=== PATIENT | male | born 1955 | race Caucasian/White ===

== ENCOUNTER 2016-12-23 18:10 | Observation (INO) | payer BC ==
--- NOTE | 2016-12-23 19:54 | RAD ---
INDICATION: Pain and swelling. COMPARISON: None TECHNIQUE: Duplex interrogation of the Lowerextremity was performed. FINDINGS: Deep veins: The common femoral, great saphenous, profunda femoris, proximal, mid, and distal deep femoral, popliteal, posterior tibial, and peroneal veins were interrogated. There is thrombus extending from the proximal deep femoral and to the tibial vessels Superficial veins: There are no findings of superficial thrombophlebitis. Popliteal fossa:There is no evidence of a popliteal cyst. Soft tissues:There is calf edema. IMPRESSION: EXTENSIVE DEEP VENOUS THROMBOSIS.
[2016-12-23 20:23] LABS: Hematocrit 41 % (42-52); Hemoglobin 13.8 g/dl (14.0-18.0); Mean Corpuscular HGB Conc 34 g/dl (31-36); Mean Corpuscular Hemoglobin 29 pg (27-31); Mean Corpuscular Volume 86 fL (80-94); Mean Platelet Volume 7 um3 (7.4-10.4); Red Blood Count 4.79 10^6/ul (4.0-5.4); Red Cell Distribution Width 13 % (10.5-15); White Blood Count 9.8 10^3/ul (3.5-10.8)
[2016-12-23 20:38] LABS: BUN/Creatinine Ratio 12.1 (8-20); Calcium 9.7 mg/dL (8.6-10.3); EGFR African American 70.9 (>60); EGFR Non-African American 55.1 (>60); Potassium 4.1 mmol/L (3.5-5.0)
[2016-12-23] MEDS ORDERED: Rivaroxaban TAB(*) 20 MG TAB PO SCH (21:00)
[2016-12-23] MEDS ORDERED: Rivaroxaban TAB(*) 20 MG TAB PO ONE (22:00)
[2016-12-23] MEDS ORDERED: Iodixanol* (CONTRAST) 320 MG/ML 100 ML SDV IV ONE (22:07)
[2016-12-24] MEDS ORDERED: traMADol TAB* 50 MG PO PRN (01:24)
[2016-12-24] MEDS ORDERED: Acetaminophen TAB* 325 MG PO PRN (01:24)
[2016-12-24] MEDS ORDERED: CMCS: Melatonin (NF) 3 MG TAB PO PRN (01:24)
[2016-12-24] MEDS ORDERED: Ondansetron INJ* 2 MG/ML VIAL IV PRN (01:24)
[2016-12-24] MEDS ORDERED: oxyCODONE TAB* 5 MG TAB PO PRN (01:24)
[2016-12-24] MEDS ORDERED: NS 0.9% 1000 ML* 1,000 ML IV SCH (01:30)
[2016-12-24] MEDS ORDERED: Omeprazole CAP* 20 MG PO SCH (06:00)
[2016-12-24 06:04] LABS: Hematocrit 39 % (42-52); Hemoglobin 13.3 g/dl (14.0-18.0)
--- NOTE | 2016-12-24 06:47 | HP ---
H&P (Free Text) History and Physical: PCP: KARLIE Chinchilla MD Date/Time: 12/24/2016 0100 CC: RLE swelling and tightness HPI: Mr Iyer is a 61YO male HX NH lymphoma & prostate CA presenting with onset yesterday of R calf discomfort progressing up the leg to the thigh to include swelling. He denies injury, change in activity, or recent prolonged trip. He denies chest pain, SOB, palpitations, N/V, light-headedness, or other issues. Evaluation revealed an extensive RLE DVT. CTA chest revealed B pulmonary emboli. 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; full codes status FamHx: Mother: passed of complications of asthma; Father: alive in his 80's w/ HX DVT; siblings: prostate CA ROS: as above, otherwise reviewed and all were negative vitals: Vital Signs Temp 37.1 C 12/24/16 04:00 Pulse 60 12/24/16 06:00 Resp 17 12/24/16 06:00 BP 130/70 12/24/16 06:00 Pulse Ox 96 12/24/16 06:00 Intake & Output 12/23/16 12/23/16 12/24/16 11:59 23:59 11:59 Intake Total 272 Balance 272 Weight 79.379 kg 80.1 kg Intake: IVPB 222 NS (0.9%) 222 Oral 50 Other: Date of Last Bowel 12/23/2016 Movement Constitutional: NAD, normally developed, well-nourished white male HEENM: atraumatic; sclera/conjunctiva: non-icteric/clear; hearing: clinically intact; oropharynx: clear, mucosa moist Neck: soft tissue: non-tender; thyroid: normal Pulmonary: clear to auscultation bilaterally, good aeration, no accessory muscle use CV: RR/RR, normal S1S2, no carotid bruit, no jugular venous distention, 2+ B DP/ PT, trace to 1+ RLE edema Abdominal: soft, non-distended, non-tender, no rebound/guarding/rigidity, normoactive bowel sounds, no hepatosplenomegaly or masses, no costovertebral angle tenderness Musculoskeletal: general: grossly intact; gait: stable Integumental: normal appearance and texture of exposed skin Psychiatric orientation: AA&O to PPS affect: calm mood: pleasant eye contact: good content: reliable responses: timely insight: good Testing: Lab Results 12/23/16 12/23/16 12/23/16 Range/Units 20:14 20:14 20:14 WBC 9.8 (3.5-10.8) 10^3/ul RBC 4.79 (4.0-5.4) 10^6/ul Hgb 13.8 L (14.0-18.0) g/dl Hct 41 L (42-52) % MCV 86 (80-94) fL MCH 29 (27-31) pg MCHC 34 (31-36) g/dl RDW 13 (10.5-15) % Plt Count 190 (150-450) 10^3/ul MPV 7 L (7.4-10.4) um3 INR (Anticoag Therapy) 0.96 (0.89-1.11) APTT 29.8 (26.0-36.3) seconds Sodium 138 (133-145) mmol/L Potassium 4.1 (3.5-5.0) mmol/L Chloride 102 (101-111) mmol/L Carbon Dioxide 29 (22-32) mmol/L Anion Gap 7 (2-11) mmol/L BUN 16 (6-24) mg/dL Creatinine 1.32 H (0.67-1.17) mg/dL Est GFR ( Amer) 70.9 (>60) Est GFR (Non-Af Amer) 55.1 (>60) BUN/Creatinine Ratio 12.1 (8-20) Glucose 95 (70-100) mg/dL Calcium 9.7 (8.6-10.3) mg/dL 12/24/16 Range/Units 05:50 WBC (3.5-10.8) 10^3/ul RBC (4.0-5.4) 10^6/ul Hgb 13.3 L (14.0-18.0) g/dl Hct 39 L (42-52) % MCV (80-94) fL MCH (27-31) pg MCHC (31-36) g/dl RDW (10.5-15) % Plt Count (150-450) 10^3/ul MPV (7.4-10.4) um3 INR (Anticoag Therapy) (0.89-1.11) APTT (26.0-36.3) seconds Sodium (133-145) mmol/L Potassium (3.5-5.0) mmol/L Chloride (101-111) mmol/L Carbon Dioxide (22-32) mmol/L Anion Gap (2-11) mmol/L BUN (6-24) mg/dL Creatinine (0.67-1.17) mg/dL Est GFR ( Amer) (>60) Est GFR (Non-Af Amer) (>60) BUN/Creatinine Ratio (8-20) Glucose (70-100) mg/dL Calcium (8.6-10.3) mg/dL ECG, personally reviewed: NSR rate 72, no ischemia, mild J-point elevation V2/3 CXR, personally reviewed: IMPRESSION: EXTENSIVE DEEP VENOUS THROMBOSIS. CTA chest, personally reviewed: Pulmonary emboli left lower lobe segmental/ subsegmental arteries and arteries in the right middle and lower lobes. No aortic dissection or aneurysm. No pneumonia or pleural effusions. Coronary artery disease. 9mm nodule right middle lobe, stable since 02/25/11. Persisting 3.3cm calcified cystic focus in spleen unchanged. Impression: 61M HX NH lymphoma & prostate CA presents with extensive RLE DVT & B PE. DIAGNOSIS & PLAN Primary extensive RLE DVT & B PE : start rivaroxaban PO 15mg BID x21 days, then 20mg daily for 9-12 months : pain control : strict bedrest for 24hours to allow clot burden to stabilize and decrease risk of re-embolization : supportive care Secondary NH lymphoma & prostate CA : continue outpatient surveillance Admission Rational: inpatient for extensive RLE DVT & B PE at high risk of re- embolization requiring close monitoring; inappropriate for outpatient setting DVTp: rivaroxaban Code Status: full HCP:
--- NOTE | 2016-12-24 07:27 | RAD ---
INDICATION: The venous thrombosis. COMPARISON: Comparison is made with a prior CT of the chest from February 25, 2011. TECHNIQUE: A CT angiogram of the chest was performed with intravenous following intravenous injection of 77 ml of Visipaque 320 nonionic contrast. Contiguous axial sections were obtained from the lung apices through the lung bases. Images were reconstructed in the coronal and sagittal planes. FINDINGS: There is suboptimal opacification of the pulmonary arteries. There is a thrombus in the right interlobar, right middle lobe and right basilar segmental and subsegmental arteries. There are also filling defects in the left lower lobe basilar segmental arteries consistent with multiple bilateral pulmonary emboli. The heart is within normal limits in size. No pericardial effusion is present. There are calcifications within the coronary arteries. The thoracic aorta is normal in caliber and demonstrates homogeneous contrast opacification. No significant enlarged mediastinal or hilar lymph nodes are seen. There is a peripherally calcified cystic lesion present within the superior aspect of the spleen measuring 3.3 cm in size which is unchanged from the prior CT study from 2010. There is a 0.9 x 0.5 cm oblong nodule present in the right middle lobe which is unchanged from the prior study from 2010. There are mild dependent bilateral lower lobe infiltrates suggestive of atelectasis. No pleural effusion is seen. No significant focal osseous abnormality is seen. IMPRESSION: 1. MULTIPLE BILATERAL PULMONARY EMBOLI. 2. STABLE RIGHT MIDDLE LOBE PULMONARY NODULE. 3. STABLE CYSTIC LESION IN THE SPLEEN.
[2016-12-24] MEDS: Rivaroxaban TAB(*) 15 MG PO SCH ×2 (08:02→20:24)
[2016-12-24] MEDS ORDERED: Docusate CAP* 100 MG PO SCH (09:00)
--- NOTE | 2016-12-24 09:17 | DCNOTE ---
Subjective Date of Service: 12/24/16 Interval History: Mild pain R leg. No subj change in the swelling. No chest pain, cough, SOB. No new c/o. Objective Active Medications: Acetaminophen (Tylenol Tab*) 650 mg PO Q6H PRN PRN Reason: FEVER/PAIN Rivaroxaban (Xarelto(*)) 15 mg PO BID DIVINE Last Admin: 12/24/16 08:02 Dose: 15 mg Vital Signs 12/24/16 12/24/16 12/24/16 01:56 02:04 02:12 Temperature 100.0 F Pulse Rate 68 Respiratory 18 Rate Blood Pressure 169/83 160/68 (mmHg) O2 Sat by Pulse 98 95 Oximetry 12/24/16 12/24/16 12/24/16 02:15 02:19 02:27 Temperature 99.9 F Pulse Rate 74 Respiratory 17 18 Rate Blood Pressure 169/83 (mmHg) O2 Sat by Pulse 96 Oximetry 12/24/16 12/24/16 12/24/16 02:30 02:45 03:00 Temperature Pulse Rate 68 70 67 Respiratory 21 17 18 Rate Blood Pressure 148/82 145/84 149/79 (mmHg) O2 Sat by Pulse 97 96 97 Oximetry 12/24/16 12/24/16 12/24/16 03:15 03:30 03:45 Temperature Pulse Rate 65 68 62 Respiratory 20 18 12 Rate Blood Pressure 155/86 149/84 144/73 (mmHg) O2 Sat by Pulse 97 97 97 Oximetry 12/24/16 12/24/16 12/24/16 04:00 04:15 04:30 Temperature 98.8 F Pulse Rate 59 56 55 Respiratory 17 15 15 Rate Blood Pressure 131/70 134/72 127/67 (mmHg) O2 Sat by Pulse 96 95 95 Oximetry 12/24/16 12/24/16 12/24/16 04:45 05:00 05:15 Temperature Pulse Rate 56 55 55 Respiratory 15 14 14 Rate Blood Pressure 120/69 125/67 125/61 (mmHg) O2 Sat by Pulse 95 95 95 Oximetry 12/24/16 12/24/16 12/24/16 05:30 05:45 06:00 Temperature Pulse Rate 55 55 60 Respiratory 16 14 17 Rate Blood Pressure 121/65 113/61 130/70 (mmHg) O2 Sat by Pulse 95 95 96 Oximetry 12/24/16 12/24/1612/24/17 07:00 08:00 09:00 Temperature 98.7 F Pulse Rate 53 61 65 Respiratory 15 19 18 Rate Blood Pressure 119/63 127/72 (mmHg) O2 Sat by Pulse 95 97 97 Oximetry Oxygen Devices in Use Now: None Appearance: Alert, partly up in ICU bed. In good spirits. Looks comfortable. Eyes: No Scleral Icterus Neck: NL Appearance and Movements; NL JVP, No Thyroid Enlargement, Masses Respiratory: Symmetrical Chest Expansion and Respiratory Effort, Clear to Auscultation, Clear to Percussion Cardiovascular: NL Sounds; No Murmurs; No JVD, RRR, No Edema, - Extremities: No Edema, No Clubbing, Cyanosis, - - R calf larger than L Skin: No Rash or Ulcers, No Nodules or Sclerosis, - Neurological: Alert and Oriented x 3, NL Sensation Result Diagrams: 12/24/16 05:50 12/23/16 20:14 Additional Lab and Data: Lab Results 12/23/16 12/23/16 Range/Units 20:14 20:14 WBC 9.8 (3.5-10.8) 10^3/ul RBC 4.79 (4.0-5.4) 10^6/ul Hgb 13.8 L (14.0-18.0) g/dl Hct 41 L (42-52) % MCV 86 (80-94) fL MCH 29 (27-31) pg MCHC 34 (31-36) g/dl RDW 13 (10.5-15) % Plt Count 190 (150-450) 10^3/ul MPV 7 L (7.4-10.4) um3 INR (Anticoag Therapy) 0.96 (0.89-1.11) APTT 29.8 (26.0-36.3) seconds Microbiology and Other Data: Microbiology 12/24/16 01:55 Nasal Screen MRSA (PCR)([facility]) - Final Nasal Mrsa Negative Assess/Plan/Problems-Billing Assessment: - Patient Problems (1) Pulmonary embolism Current Visit: Yes Status: Acute Code(s): I26.99 - OTHER PULMONARY EMBOLISM WITHOUT ACUTE COR PULMONALE SNOMED Code(s): 26629323 Comment: with DVT R leg. Stable. Had first dose of rivaroxaban about 0200 ( ? 20 mg), second dose (15 mg) 8 aAM 12/24. Transfer to tele, plan d/c with rx for both 15 mg rivaroxaban and [address] Chinchilla. (2) History of prostate cancer Current Visit: Yes Status: Acute Code(s): Z85.46 - PERSONAL HISTORY OF MALIGNANT NEOPLASM OF PROSTATE SNOMED Code(s): 573250818 Comment: PSA 0.063 on 11/27/16. Status and Disposition: Tele.
--- NOTE | 2016-12-25 08:15 | ED ---
Viola Hyatt Thomas, scribed for Steven Alberto MD on 12/23/16 at 2037 . Lower Extremity - HPI Summary HPI Summary: The pt is a 61 y/o M presenting to the ED c/o RLE swelling and pain that began two days ago. The pt rates the pain 2/10. The pain is aggravated by elevation and is alleviated by nothing. 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 He denies CP, SOB, and F/C/S. PMHx: Non-Hodgkins lymphoma, chemotherapy, amyloidosis, BPH. PSHx: prostectomy 05/27/16. SHx: no smoking, no alcohol use, no illicit drug use. FHx: DVT. - History of Current Complaint Chief Complaint: EDExtremityLower Stated Complaint: RT LEG PAIN Time Seen by Provider: 12/23/16 19:25 Hx Obtained From: Patient, Family/Lithographic Proofer Apprentice - in room Onset/Duration: Days - 2 days Severity Currently: Mild Pain Intensity: 2 Pain Scale Used: 0-10 Numeric Timing: Constant Associated Signs And Symptoms: Positive: Swelling - to RLE. Negative: Fever, Other - NEG: SOB, F/C/S Aggravating Factor(s): Other - POS: elevation Alleviating Factor(s): Nothing - Allergies/Home Medications Allergies/Adverse Reactions: Allergies Allergy/AdvReac Type Severity Reaction Status Date / Time No Known Allergies Allergy Verified 05/23/16 07:22 PMH/Surg Hx/FS Hx/Imm Hx Previously Healthy: No Endocrine/Hematology History: Denies: Hx Anticoagulant Therapy, Hx Diabetes, Hx Thyroid Disease Cardiovascular History: Denies: Hx Hypertension - borderline, no meds Respiratory History: Denies: Hx Asthma, Hx Chronic Obstructive Pulmonary Disease (COPD) GI History: Denies: Hx Ulcer - Cancer History Cancer Type, Location and Year: Non-hodgkins Lymphoma 2001. PROSTATE CA - Surgical History Surgery Procedure, Year, and Place: cholecystectomy 2001 Infectious Disease History: No Infectious Disease History: Denies: Hx Clostridium Difficile, Hx Hepatitis, Hx Human Immunodeficiency Virus (HIV), Hx of Known/Suspected MRSA, Hx Shingles, Hx Tuberculosis, Hx Known/ Suspected VRE, Hx Known/Suspected VRSA, History Other Infectious Disease, Traveled Outside the [place] in Last 30 Days - Family History Known Family History: Positive: Other - POS: DVT. - Social History Alcohol Use: None Substance Use Type: Reports: None Smoking Status (MU): Never Smoked Tobacco Have You Smoked in the Last Year: No Review of Systems Negative: Fever, Chills, Skin Diaphoresis Negative: Erythema - eyes Negative: Sore Throat Negative: Chest Pain Negative: Shortness Of Breath, Cough Negative: Abdominal Pain, Vomiting, Nausea Negative: discharge, hematuria Positive: Edema - RLE, Other - POS: RLE pain. Negative: Myalgia Negative: Rash Neurological: Other - NEG: dizziness All Other Systems Reviewed And Are Negative: Yes Physical Exam - Summary Physical Exam Summary: Constitutional: Well-developed, Well-nourished, Alert. (-) Distressed Skin: Warm, Dry HENT: Normocephalic; Atraumatic Eyes: Conjunctiva normal Neck: Musculoskeletal ROM normal neck. (-) JVD, (-) Stridor, (-) Tracheal deviation Cardio: Rhythm regular, rate normal, Heart sounds normal; Intact distal pulses; The pedal pulses are 2+ and symmetric. Radial pulses are 2+ and symmetric. (-) Murmur Pulmonary/Chest wall: Effort normal. (-) Respiratory distress, (-) Wheezes, (-) Rales Abd: Soft, (-) Tenderness, (-) Distension, (-) Guarding, (-) Rebound Musculoskeletal: He has trace pitting edema in his RLE. Lymph: (-) Cervical adenopathy Neuro: Alert, Oriented x3 Psych: Mood and affect Normal Triage Information Reviewed: Yes Vital Signs On Initial Exam: Initial Vitals Temp Pulse Resp BP Pulse Ox 100 F 91 17 139/81 99 12/23/16 18:18 12/23/16 18:18 12/23/16 18:18 12/23/16 18:18 12/23/16 18:18 Vital Signs Reviewed: Yes - [place] Coma Scale Coma Scale Total: 15 Diagnostics - Vital Signs Vital Signs Temp Pulse Resp BP Pulse Ox 12/23/16 18:57 100 F 91 17 139/81 98 12/23/16 18:18 100 F 91 17 139/81 99 - Laboratory Lab Results: Lab Results 12/23/16 12/23/16 Range/Units 20:14 20:14 WBC 9.8 (3.5-10.8) 10^3/ul RBC 4.79 (4.0-5.4) 10^6/ul Hgb 13.8 L (14.0-18.0) g/dl Hct 41 L (42-52) % MCV 86 (80-94) fL MCH 29 (27-31) pg MCHC 34 (31-36) g/dl RDW 13 (10.5-15) % Plt Count 190 (150-450) 10^3/ul MPV 7 L (7.4-10.4) um3 INR (Anticoag Therapy) 0.96 (0.89-1.11) APTT 29.8 (26.0-36.3) seconds Result Diagrams: 12/23/16 20:14 12/23/16 20:14 Lab Statement: Any lab studies that have been ordered have been reviewed, and results considered in the medical decision making process. - CT CTA Chest CT Interpretation: No Acute Changes - Pulmonary emboli left lower lobe segmental /subsegmental arteries and ateries in right middle and lower lobes. CT Interpretation Completed By: Radiologist - Pending--see [facility] - Additional Comments Diagnostic Additional Comments: US RLE. Interpreted by radiologist. Impression: extensive DVT. Lower Extremity Course/Dx - Course Assessment/Plan: The pt is a 61 y/o M presenting to the ED c/o RLE swelling and pain that began two days ago. The pt rates the pain 2/10. The pain is aggravated by elevation and is alleviated by nothing. 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 He denies CP, SOB, and F/C/S. PMHx: Non-Hodgkins lymphoma, chemotherapy, amyloidosis, BPH. PSHx: prostectomy 05/27/16. SHx: no smoking, no alcohol use, no illicit drug use. FHx: DVT. In the ED course the patient was given Xarelto. Bloodwork was obtained. He has trace pitting edema in his RLE. I consulted with Dr. Bass, hospitalist, who recommends a CTA Chest. US RLE reveals extensive DVT. CTA Chest shows bilateral pulmonary emboli. ED Physician has reviewed this report and agrees. I consulted with Dr. Bass, hospitalist, who [place] [facility] [place]. 35 minutes of critical care time. The patient is diagnosed with proximal DVT and bilateral pulmonary embolism. - Diagnoses Provider Diagnoses: DVT of proximal leg (deep vein thrombosis), Bilateral pulmonary embolism - Physician Notifications Discussed Care Of Patient With: Dez Bass Time Discussed With Above Provider: 21:00 Instructed by Provider To: Other - Dr. Bryant, hospitalist, recommends a CTA Chest. He [place] [facility] [place]. - Critical Care Time Critical Care Time: 30-74 min - 35 minutes Discharge - Discharge Plan Condition: Fair Disposition: ADMITTED TO [facility] Prescriptions: Rivaroxaban [Xarelto Starter Pack 15 & 20 mg] 1 tab PO SEE INSTRUCTIONS #1 packet The documentation as recorded by the Viola yao Thomas accurately reflects the service I personally performed and the decisions made by me, Steven Alberto MD.
--- NOTE | 2016-12-25 09:25 | PN ---
Progress Note - Progress Note Date of Service: 12/25/16 Note: Time spent on discharge 40 minutes.
[2016-12-25] MEDS: Rivaroxaban TAB(*) 15 MG PO SCH (09:44)
[2016-12-25 10:03] VITALS: BP 99/68
--- NOTE | 2016-12-26 00:10 | DS ---
CC: Dr. Chinchilla * DISCHARGE SUMMARY: DATE OF ADMISSION: DATE OF DISCHARGE: 12/25/16 HISTORY: This 61-year-old man presented with right calf swelling and discomfort. He had been on a trip this past Thursday, he had two 3-hour bus trips. The following Thursday, he had two 2-hour car trips. A day or two after that, he developed swelling and pain in the right calf. He had no chest pain, shortness of breath or cough. CTA did reveal pulmonary emboli. He was started on rivaroxaban. He had some at 2 a.m. on 12/24/16 and then again at 8 a.m. and then twice a day after that. He felt fine in the hospital. On the day of discharge, he noted his right calf swelling and tenderness have both diminished significantly. He walks at least 10 times around the block without any shortness of breath or significant discomfort. I note he is quite an active man at home. I advised the patient that if he had future long car trips or plane trips, he should try to exercise his legs every hour by stopping and taking a 10-minute walk or in a plane walking in the aisle or exercising his legs in place. This is his first episode of thromboembolic disease. There may be a family history, but I do not think this would really change my recommendations. I think 3 to 6 months course of anticoagulants would be my recommendation. FINAL DIAGNOSES: 1. Thromboembolic disease with right leg deep venous thrombosis and pulmonary emboli. 2. Status post prostatectomy for prostate cancer in May 2016. 3. Non-Hodgkin's lymphoma, status post chemotherapy. 4. Hyperlipidemia. DISCHARGE MEDICATIONS: 1. Acetaminophen 650 mg every 6 hours p.r.n. 2. Rivaroxaban 15 mg b.i.d. to complete 21 days then 20 mg daily. 3. Mometasone nasal spray both nares daily. 4. Tadalafil 5 mg p.r.n. The patient was instructed not to take indomethacin. [id number]/[facility] #: [id number] [facility]
== END 2016-12-25 10:07 | disposition home or self-care (01) ==
LOC: ED 18:10 → ICU 12-24 01:00 → INTOOBSV 12-24 01:00 → MEDTELE 12-24 09:32
PROVIDERS: ADMIT Hospitalist; ATTEND Internal Medicine
DX: I82.411 Acute embolism and thrombosis of right femoral vein (principal); I26.99 Other pulmonary embolism without acute cor pulmonale; E78.5 Hyperlipidemia, unspecified; R94.31 Abnormal electrocardiogram [ECG] [EKG]; Z85.46 Personal history of malignant neoplasm of prostate; Z85.72 Personal history of non-Hodgkin lymphomas
CPT/HCPCS: 36415; 71275; 80048; 85014; 85018; 85027; 85610; 85730; 87641; 93005; 99291; A9270-GY; G0378

== ENCOUNTER 2019-05-31 07:39 | Emergency (ER) | payer BC ==
[2019-05-31 07:54] VITALS: BP 139/82
--- NOTE | 2019-05-31 08:13 | UC ---
Skin Complaint HPI - HPI Summary HPI Summary: PATIENT PRESENTS WITH SEVERAL WEEKS OF A RASH THAT STARTED ON HIS LOWER BACK THEN MOVED TO HIS LEGS AND NOW IS DIFFUSELY ALL OVER HIS TRUNK AND UPPER AND LOWER EXTREMITIES. IT IS ITCHY BUT NOT PAINFUL. PATIENT STARTED FENOFIBRATE FOR CHOLESTEROL ABOUT 4 MONTHS AGO. HAS BEEN ON LUPRON FOR ALMOST A YEAR. NO OTHER NEW MEDICATIONS. NO RESPIRATORY DISTRESS. NO TONGUE/LIP SWELLING. NO FEVER. NO OTHER NEW EXPOSURES OF WHICH HE IS AWARE. - History of Current Complaint Chief Complaint: UCSkin Time Seen by Provider: 05/31/19 07:58 Stated Complaint: RASH Hx Obtained From: Patient Onset/Duration: Gradual Onset, Lasting Days, Still Present Timing: Constant Onset Severity: Moderate Current Severity: Moderate Pain Intensity: 0 Pain Scale Used: 0-10 Numeric Location: Diffuse Character: Pruritus Aggravating Factor(s): Nothing Alleviating Factor(s): Antihistamines, OTC Creams/Salves - HYDROCORTISONE Associated Signs & Symptoms: Positive: Rash. Negative: Nausea, Diaphoresis, Difficulty Breathing, Fever, Cough, Wheezing, Chest Pain, Hoarseness, Throat Tightening - Allergy/Home Medications Allergies/Adverse Reactions: Allergies Allergy/AdvReac Type Severity Reaction Status Date / Time No Known Allergies Allergy Verified 05/23/16 07:22 Home Medications: Home Medications Allopurinol TAB* [Zyloprim 100 MG TAB*] 100 mg PO DAILY MDD 1 05/31/19 [History Confirmed 05/31/19] Ramipril CAP* [Altace CAP*] 2.5 mg PO DAILY MDD 1 05/31/19 [History Confirmed ] PMH/Surg Hx/FS Hx/Imm Hx - Additional Past Medical History Additional PMH: DVT Endocrine History: Dyslipidemia Cardiovascular History: Hypertension Cancer History: Prostate Cancer Other Cancer History: NON [facility]GKINS Other History Of: Negative For: Anticoagulant Therapy - Surgical History Surgical History: Yes Surgery Procedure, Year, and Place: cholecystectomy 2001. PROSTATECTOMY - Family History Known Family History: Positive: Other - POS: DVT. - Social History Alcohol Use: None Substance Use Type: None Smoking Status (MU): Never Smoked Tobacco Have You Smoked in the Last Year: No - Immunization History Most Recent Influenza Vaccination: 2014 Most Recent Pneumonia Vaccination: 2013 Review of Systems All Other Systems Reviewed And Are Negative: Yes Constitutional: Positive: Negative Skin: Positive: Rash Respiratory: Positive: Negative Cardiovascular: Positive: Negative Gastrointestinal: Positive: Negative Physical Exam Triage Information Reviewed: Yes Appearance: Well-Appearing, No Pain Distress, Well-Nourished Vital Signs: Initial Vital Signs Temp 97.4 F 05/31/19 07:47 Pulse 86 05/31/19 07:47 Resp 16 05/31/19 07:47 BP 139/82 05/31/19 07:47 Pulse Ox 99 05/31/19 07:47 Vital Signs Reviewed: Yes Eyes: Positive: Conjunctiva Clear ENT: Positive: Hearing grossly normal Neck: Positive: Supple Respiratory: Positive: No respiratory distress, No accessory muscle use Cardiovascular: Positive: Pulses Normal Abdomen Description: Positive: Soft Musculoskeletal: Positive: No Edema Neurological: Positive: Alert Psychological: Positive: Age Appropriate Behavior Skin: Positive: Rashes - DIFFUSE MACULOPAPULAR RASH OVER TRUNK AND EXTREMITIES. MILD EXCORIATION Course/Dx - Course Course Of Treatment: APPEARANCE OF RASH IS CONSISTENT WITH DERMATITIS DUE TO MEDICATION LIKELY THE FENOFIBRATE HE STARTED 4 MONTHS AGO. HE STOPPED THIS MEDICATION 2 DAYS AGO AND STATES HE FEELS A BIT BETTER ALREADY. HAS BEEN TAKING BENADRYL AND USING TOPICAL HYDROCORTISONE WITH SOME RELIEF. DISCUSSED PREDNISONE BUT PATIENT IS ALREADY IMPROVING HE AGREES THAT IT IS LIKELY UNNECESSARY. WILL HOLD OFF ON SYSTEMIC STEROIDS FOR NOW. PATIENT WILL CONTINUE ANTIHISTAMINES AND TOPICAL STEROIDS FOR SYMPTOM RELIEF. PRESCRIPTION FOR TRIAMCINOLONE SENT TO PHARMACY. PATIENT WILL FOLLOW-UP WITH HIS PCP TO DISCUSS ALTERNATIVE CHOLESTEROL TREATMENTS. TO THE ER WITHOUT FAIL IF SYMPTOMS WORSEN. - Diagnoses Provider Diagnosis: Dermatitis due to drug Discharge ED - Sign-Out/Discharge Documenting (check all that apply): Patient Departure All imaging exams completed and their final reports reviewed: No Studies - Discharge Plan Condition: Stable Disposition: HOME Prescriptions: Triamcinolone 0.1% CREAM(NF) [Kenalog Cream 0.1%(NF)] 1 applic TOPICAL TID PRN # 80 gm PRN Reason: Itching Patient Education Materials: General Allergic Reaction (ED), Dermatitis (ED) Referrals: Ellen Mera MD [Primary Care Provider] - 1 Week Additional Instructions: USE DAILY HYPOALLERGENIC MOISTURIZING LOTION AVOID HEAT AND HOT WATER TAKE OTC ANTIHISTAMINE DAILY (CLARITIN (LORATADINE), ZYRTEC (CETIRIZINE) IN THE MORNING, 25-50MG BENADRYL AT NIGHT) DO NOT SCRATCH KEEP COOL, CLEAN AND DRY USE TOPICAL STEROID SPARINGLY 2-3 TIMES DAILY ON ITCHY SPOTS. KEEP AWAY FROM MUCOUS MEMBRANES. GO TO THE ED WITHOUT FAIL IF YOU DEVELOP ANY RESPIRATORY INVOLVEMENT, TONGUE/ LIP SWELLING, FEVER, NAUSEA/VOMITING OR ANY OTHER CONCERNING SYMPTOMS. FOLLOW-UP WITHY YOUR PCP TO DISCUSS ALTERNATIVE TREATMENTS FOR YOUR CHOLESTEROL. STAY OFF THE FENOFIBRATE. - Billing Disposition and Condition Condition: STABLE Disposition: Home
== END 2019-05-31 08:27 | disposition home or self-care (01) ==
LOC: UCEAST 07:39
DX: L27.0 Generalized skin eruption due to drugs and medicaments taken internally (principal); T46.6X5A Adverse effect of antihyperlipidemic and antiarteriosclerotic drugs, initial encounter; I10 Essential (primary) hypertension; Z85.46 Personal history of malignant neoplasm of prostate; Z85.72 Personal history of non-Hodgkin lymphomas; Y92.9 Unspecified place or not applicable
CPT/HCPCS: 99211; G0463

== ENCOUNTER 2019-11-22 15:10 | Inpatient (IN) ==
[2019-11-22 18:10] LABS: ABS Basophils 0.1 10^3/ul (0-0.2); ABS Eosinophils 0.3 10^3/ul (0-0.6); ABS Lymphocytes 1.3 10^3/ul (1.0-4.8); ABS Monocytes 1.2 10^3/ul (0-0.8); Eosinophil % 3.1 %; Hematocrit 41 % (42-52); Hemoglobin 14.4 g/dL (14.0-18.0); Lymphocyte % 12.3 %; Mean Corpuscular HGB Conc 35 g/dL (31-36); Mean Corpuscular Hemoglobin 30 pg (27-31); Mean Corpuscular Volume 86 fL (80-94); Mean Platelet Volume 7.4 fL (7.4-10.4); Nucleated Red Blood Cells % 0.1; Platelet Count 183 10^3/uL (150-450); Red Cell Distribution Width 14 % (10-15); White Blood Count 10.9 10^3/uL (3.5-10.8)
[2019-11-22 18:15] LABS: INR 1.02 (0.82-1.09)
[2019-11-22 18:33] LABS: ALT 22 U/L (7-52); AST 23 U/L (13-39); Albumin 4.6 g/dL (3.2-5.2); Albumin/Globulin Ratio 1.5 (1-3); Alkaline Phosphatase 120 U/L (34-104); Anion Gap 10 mmol/L (2-11); Blood Urea Nitrogen 24 mg/dL (6-24); CO2 Carbon Dioxide 25 mmol/L (22-32); Calcium 10.2 mg/dL (8.6-10.3); Chloride 105 mmol/L (101-111); EGFR African American 61.2 (>60); EGFR Non-African American 50.6 (>60); Globulin 3.1 g/dL (2-4); Glucose 104 mg/dL (70-100); Potassium 4.2 mmol/L (3.5-5.0); Sodium 140 mmol/L (135-145); Total Protein 7.7 g/dL (6.4-8.9)
[2019-11-22 18:34] LABS: Troponin I 0.06 ng/mL (<0.03)
[2019-11-22] MEDS ORDERED: Iodixanol (CONTRAST) 320 MG/ML 100 ML SDV IV ONE (18:42)
[2019-11-22] MEDS ORDERED: Enoxaparin 80 MG/0.8 ML SYR SUBCUT ONE (19:31)
[2019-11-22] MEDS ORDERED: Enoxaparin 100 MG/ML SYR SUBCUT ONE (20:00)
[2019-11-22] MEDS ORDERED: Ondansetron 4 mg VIAL 2 MG/ML 2 ml VIAL IV PRN (21:49)
[2019-11-22 21:51] LABS: Troponin I 0.06 ng/mL (<0.03)
[2019-11-23 01:03] LABS: Troponin I 0.08 ng/mL (<0.03)
[2019-11-23 06:58] LABS: ABS Basophils 0.1 10^3/ul (0-0.2); ABS Eosinophils 0.4 10^3/ul (0-0.6); ABS Lymphocytes 1.2 10^3/ul (1.0-4.8); ABS Monocytes 0.9 10^3/ul (0-0.8); ABS Neutrophils 4.6 10^3/ul (1.5-7.7); Hematocrit 36 % (42-52); Hemoglobin 12.6 g/dL (14.0-18.0); Lymphocyte % 16.6 %; Mean Corpuscular HGB Conc 35 g/dL (31-36); Mean Corpuscular Hemoglobin 30 pg (27-31); Mean Corpuscular Volume 86 fL (80-94); Mean Platelet Volume 7.2 fL (7.4-10.4); Platelet Count 146 10^3/uL (150-450); Red Blood Count 4.17 10^6 /uL (4.18-5.48); Red Cell Distribution Width 13 % (10-15); White Blood Count 7.2 10^3/uL (3.5-10.8)
[2019-11-23 07:11] LABS: INR 1.1 (0.82-1.09)
[2019-11-23 07:12] LABS: BUN/Creatinine Ratio 17.1 (8-20); Calcium 9.6 mg/dL (8.6-10.3); EGFR African American 61.7 (>60); Potassium 3.8 mmol/L (3.5-5.0)
[2019-11-23] MEDS ORDERED: Enoxaparin 100 MG/ML SYR SUBCUT SCH (08:30)
[2019-11-23] MEDS ORDERED: ICOSAPENT ETHYL 1 GM PO SCH (09:00)
[2019-11-23 11:46] LABS: Troponin I 0.04 ng/mL (<0.03)
[2019-11-23 16:37] VITALS: BP 140/76
== END 2019-11-23 17:55 | disposition home or self-care (01) | DRG 134 ==
LOC: ED 15:10 → MEDTELE 11-23 00:42
PROVIDERS: ADMIT Nurse Practitioner Family; ATTEND Internal Medicine